=== PATIENT | male | born 1980 | race Caucasian/White ===

== ENCOUNTER → 2016-06-18 | Day surgery (SDC) | payer BC ==
[~2016-06-18] VITALS: Ht 186.7 cm; Wt 67.1 kg
[2016-06-18] VITALS (15 sets, daily range): BP systolic 100–145; BP diastolic 66–80
[~2016-06-18] MED LIST: Bacitracin Oint 15gm Tube TOPIC ONE; Cocaine 4% Vial TOPIC ONE; Dexamethasone 4mg/ml vial ONE; DiphenhydrAMINE 50mg/ml Inj IVP PRN; Hydromorphone 0.5mg/0.5ml inj IVP PRN; Kenalog-40 1ml Vial ONE; LORazepam Inj 2mg/ml 1ml IV PRN; LR 1000ml 1,000 ML IVLG SCH; LR 1000ml ONE; Labetalol 5mg/ml 20ml vial IV PRN; Lidocaine 1% 10mg/ml/Epi 0.005mg/ml 30ml vial INJ ONE; MULTI-VITAMIN1 EACH PO; Metoclopramide 10mg/2ml Inj IVP PRN; Midazolam 2mg/2ml Inj IVP PRN; Midazolam 2mg/2ml Inj ONE; Naloxone 1mg/ml 2ml ONE; Neostigmine 1mg/ml 10ml Inj ONE; Oxymetazoline 0.05% Na Spray 30ml NASAL ONE; Propofol 10mg/ml 20ml IV ONE; Saline Nasal Gel (Ayr) NASAL ONE; Succinylcholine 20mg/ml 10ml vial ONE; Zemuron 50mg/5ml Inj IV ONE; ceFAZolin 1gm in D5W 55ml IVP ONE; ceFAZolin sod 1 GM in NS 55 ML IVP ONE; fentaNYL 100 mcg/2 mL IV ONE; fentaNYL 100 mcg/2 mL IV PRN
--- NOTE | 2016-06-18 11:09 | Pre-Procedure Note/Attestation ---
Pre-Procedure Note/Attestation Complete Prior to Procedure Planned Procedure: not applicable Procedure Narrative: nasal obstruction unresponsive to medication Indications for Procedure Pre-Operative Diagnosis: septal deviation, bilateral hypertrophied inferior turbinates Attestation I attest that I discussed the nature of the procedure; its benefits; risks and complications; and alternatives (and the risks and benefits of such alternatives ), prior to the procedure, with the patient (or the patient's legal sales utility representative). I attest that, if there was a reasonable possibility of needing a blood transfusion, the patient (or the patient's legal sales utility representative) was given the [facility] standardized written summary, pursuant to the Christiano Ensley Blood Safety Act ([place] Health and Safety Code # 1645, as amended). I attest that I re-evaluated the patient just prior to the surgery and that there has been no change in the patient's H&P, except as documented below: POPPY SORIA Jun 18, 2016 11:09
--- NOTE | 2016-06-18 12:14 | Anethesia Preoperative Eval ---
Anesthesia Pre-op PMH/ROS General Date of Evaluation: Jun 18, 2016 Anesthesiologist: Krishan ASA Score: ASA 1 Mallampati Score Class I : Soft palate, uvula, fauces, pillars visible Class II: Soft palate, uvula, fauces visible Class III: Soft palate, base of uvula visible Class IV: Only hard plate visible Mallampati Classification: Class I Surgeon: Selma Diagnosis: Deviated septum Surgical Procedure: SEptoplasty SMR TURBS Anesthesia History: none Family History: no anesthesia problems Allergies: Coded Allergies: No Known Allergies (Unverified , 06/13/16) Medications: see eMAR Past Medical History Cardiovascular: Denies: CAD, HTN, ND, arrhythmia, other, valve dz Pulmonary: Denies: COPD, DULCE, asthma, other Gastrointestinal/Genitourinary: Denies: CRI, ESRD, GERD, other Neurologic/Psychiatric: Denies: CVA, TIA, dementia, depression/anxiety, other Endocrine: Denies: DM, hypothyroidism, other, steroids HEENT: Denies: [place] (L), [place] (R), cataract (L), cataract (R), glaucoma, other Hematology/Immune: Denies: DVT, anemia, bleeding disorder, other Musculoskeletal/Integumentary: Denies: DDD, DJD, OA, RA, edema, other PSxH Narrative: Denies Anesthesia Pre-op Phys. Exam Physician Exam Last Vital Signs Date Time Temp Pulse Resp B/P Pulse Ox O2 Delivery O2 Flow Rate FiO2 06/18/16 09:58 97.2 51 18 100/68 100 Room Air Constitutional: NAD Cardiovascular: RRR Respiratory: CTA Airway Exam Mallampati Score: Class I MO: full ROM: full Teeth: intact Anesthesia Pre-op A/P Labs see chart Studies Pre-op Studies: EKG - sr Risk Assessment & Plan Assessment: ASA I Plan: GA Status Change Before Surgery: No Pre-Antibiotics Drug: Ancef 1g Given Within 1 Hr of Incision: Yes Time Given: 11:00 ENOC SAHNE M.D. Jun 18, 2016 12:14
--- NOTE | 2016-06-18 13:19 | Brief Operative Note ---
Immediate Post Operative Note Operative Note Pre-op Diagnosis: septal deviation, bilateral hypertrophied inferior turbinates Procedure: septoplasty, bilateral inferior turbinectomies with intramural coagulation Surgeon: Jong Hahn m.D. Anesthesia: MAC Specimen: yes - septum Complications: none Drains: none Packing: JONG Acosta Jun 18, 2016 13:19
--- NOTE | 2016-06-18 13:48 | Immediate Post-Op Evaluation ---
Immediate Post-Op Evalulation Immediate Post-Op Evalulation Procedure: Septoplsaty, SMR TURBS Date of Evaluation: Jun 18, 2016 Time of Evaluation: 13:47 IV Fluids: 1.7L Blood Products: 0 Estimated Blood Loss: 25 Urinary Output: 0 Blood Pressure Systolic: 107 Blood Pressure Diastolic: 66 Pulse Rate: 63 Respiratory Rate: 16 O2 Sat by Pulse Oximetry: 100 Temperature (Fahrenheit): 96.9 Pain Score (1-10): 0 Nausea: No Vomiting: No Complications 0 Patient Status: awake, reacts, patent, none Hydration Status: adequate Drug: Ancef 1g Given Within 1 Hr of Incision: Yes Time Given: 11:00 ENOC SHANE M.D. Jun 18, 2016 13:48
--- NOTE | 2016-06-19 02:17 | Operative Note - Dictated ---
DATE OF SURGERY: 06/18/2016 SURGEON: Jong Hahn M.D. ANESTHESIOLOGIST: . ANESTHESIA: LMA. PREOPERATIVE DIAGNOSES: 1. Septal deviation. 2. Bilateral hypertrophied inferior turbinates. POSTOPERATIVE DIAGNOSES: 1. Septal deviation. 2. Bilateral hypertrophied inferior turbinates. PROCEDURES: 1. Septoplasty. 2. Bilateral inferior turbinectomies with intramural coagulation of both inferior turbinates. INDICATION FOR SURGERY: The patient is a 35-year-old male, who complaints of paranasal pain and nasal obstruction, which has been unresponsive to antibiotics, decongestants, and intranasal steroid sprays. Re-examination revealed a S-shaped severe septal deviation with a left nasal airway being much more obstructed than the light associated with bilateral hypertrophied inferior turbinates. The patient is now being brought to the operating room for surgical repair. Procedure: The patient was brought to the operating room while premedicated and have received preoperative antibiotics. He was then placed in supine position on the operating room table. After the patient underwent satisfactory endotracheal intubation, he was given IV sedation. 0.25% Cody-Synephrine was sprayed intranasally to decongest the membrane. After a suitable period of decongestion, the intranasal cavity was sterilized with Q-tip saturated with Betadine. Approximately 16 mL of 1% Xylocaine with 1:100,000 epinephrine were used to inject the nasal and septal frameworks. Less than 200 mg of cocaine was used on nasal packing. The patient then prepped and draped in the usual sterile fashion. After a suitable period of vasoconstriction, the packing was removed. Examination prior to decongestion and injection of the intranasal cavity revealed a S-shaped septal deviation. The septum curved to the right inferiorly and superiorly to the left and extended back to the posterior choanae. This combined with the patient's massive hypertrophied inferior turbinates created left greater than right nasal airway obstruction. A # 15 blade was used to make a left inferior septal incision and a left mucoperichondrial mucoperiosteal flap was then elevated. An incision was then made between the cartilage and bony septum and a right mucoperiosteal flap was elevated. That portion of overriding obstructing perpendicular plate of the ethmoid and vomer bone were incised in strips from any attachments and removed the field of operation. A similar procedure was performed on the cartilaginous septum maintaining good anterior and inferior support. The mallet and chisel was then used to remove a large obstructing left maxillary crest spur. Re-examination now revealed a septum to be in the midline. Intramural coagulation of both inferior turbinates was performed. An incision was made in the undersurface of both inferior turbinates and mucosa stripped from the underlying bone. The inferior turbinates were then outfractured and small bones removed the pocket. Re-examination revealed minimal bleeding. All blood was suctioned from the nose and nasopharynx area. A 4-0 plain was then used to close the septum as well as to splint the septum. Telfa coated with bacitracin ointment was secured with a suture of 3-0 silk and the procedure was terminated. The patient tolerated the procedure well and left the operating room in satisfactory condition. Estimated blood loss was 30 mL. Sponge and needle count were correct. Jong Hahn M.D. DR: Eloise JOB#: [id number] CC: FELICIA
== END | disposition home or self-care (01) ==
LOC: SUR 09:16
DX: J34.2 Deviated nasal septum (principal); J34.3 Hypertrophy of nasal turbinates
CPT/HCPCS: 30520; 30802; J0330; J0690; J1100; J1170; J2250; J2310; J2405; J2704; J2710; J3010; J7120; 94003; 94150